=== PATIENT | male | born 1950 | race Caucasian/White ===

== ENCOUNTER → 2016-11-19 | Day surgery (SDC) | payer OTHER, MEDICARE ==
[~2016-11-19] MED LIST: ALBUTEROL17 GM INH; AMLODIPINE BESYL5 MG PO; AVODART0.5 MG PO; COZAAR100 MG PO; DEMADEX PO; GINKGO60 MG PO; HYTRIN10 M1 PO; MULTI VITAMIN1 EACH PO; NATURAL VITA400 UNI2 PO; SPIRIVA RESPIMAT4 G1 INH; TIROSINT100 MCG PO; ULORIC40 MG PO; VITAMIN A10000 UNIT PO; VITAMIN B125000 MCG PO; VITAMIN B6200 MG PO; VITAMIN C1000 M2 PO; VITAMIN D35000 UNI1 PO
--- NOTE | ~2016-11-19 | OR ---
Unit #: [id number] #: [id number] Patient: KEN PARHAM JR [id number] [address] [place], [place] [address] [id number] O MR#: [id number] NAME: KEN PARHAM JR ROOM: Date of Procedure: 11/19/2016 Admission Date: 11/19/2016 Surgeon: Guilherme Abdul M.D. : 1950 Attending Physician: Guilherme Abdul M.D. Primary Care Physician: Isabel Delgado Aprn OPERATIVE REPORT PREOPERATIVE DIAGNOSIS Colorectal cancer screening. PROCEDURES PERFORMED Colonoscopy and polypectomy. POSTOPERATIVE DIAGNOSES 1. The patient had 2 sessile polyps, one each in the ascending and descending colon. These were about 7 to 8 mm each. Both were removed using snare polypectomy. 2. Moderately severe sigmoid and descending colon diverticulosis. 3. Rest of the examination up to cecum was normal. The quality of the prep was good. It is noteworthy the patient had been given additional prep in order to accomplish this. RECOMMENDATIONS 1. Follow up with results of polyp histology. 2. Consider repeat colonoscopy in 5 years. 3. The patient should use double prep next time at the time of examination. SEDATION USED MAC. DESCRIPTION OF PROCEDURE Following detailed explanation of potential risks and complications of a colonoscopy, namely perforation, bleeding, and complication related to sedation, the patient was brought to GI lab and laid in the left lateral decubitus position. A digital rectal examination was performed, which was normal. Lubricated tip of the Olympus video colonoscope was introduced through the anus and advanced under direct vision. The scope was advanced and passed up to sigmoid into descending colon. Multiple diverticula were seen scattered in this area. The scope was then navigated all the way up to cecum with visualization of the ileocecal valve and the appendiceal orifice. Abdominal manipulation was needed in order to accomplish total cecal intubation. The preparation was good with good visualization and photodocumentation was obtained. Successive segments of the colonic mucosa were examined upon withdrawal. The patient was noted to have 2 sessile polyps, the first one was in the proximal ascending colon and second one in the mid descending colon. Polyps were 7 to 8 mm in size each. Both were removed using snare polypectomy. They were retrieved and sent for histology. No additional polyps noted. Other than the diverticulosis noted earlier, no other abnormalities were found. The Unit #: [id number] #: [id number] Patient: KEN PARHAM JR patient did not have any hemorrhoids at anal verge. The scope was then withdrawn. The patient returned to the recovery area. He tolerated the procedure without any postprocedure complications. Dictated by... Alee Meza/gloria TD: 11/20/2016 05:23 JOB #: [id number] OPERATIVE REPORT Page 1 of 1 X Guilherme Abdul MD X PROCEDURE OPERATIVE NOTE
== END | disposition home or self-care (01) ==
LOC: COPS 08:03
DX: Z12.11 Encounter for screening for malignant neoplasm of colon (principal); D12.2 Benign neoplasm of ascending colon; D12.4 Benign neoplasm of descending colon; K57.30 Diverticulosis of large intestine without perforation or abscess without bleeding; I10 Essential (primary) hypertension; J44.9 Chronic obstructive pulmonary disease, unspecified; M10.9 Gout, unspecified; Z87.891 Personal history of nicotine dependence; Z79.899 Other long term (current) drug therapy; Z90.49 Acquired absence of other specified parts of digestive tract
CPT/HCPCS: 88305